=== PATIENT | female | born 1935 | race Caucasian/White ===

== ENCOUNTER 2021-03-19 07:34 | Emergency (ER) | payer MEDICARE, BC ==
--- NOTE | 2021-03-19 08:20 | EDM.PDOC ---
ED HPI GENERAL MEDICAL PROBLEM - General Chief Complaint: Cardiovascular Problem Stated Complaint: JUST DON'T FEEL LIKE HERSELF Time Seen by Provider: 03/19/21 08:05 Source of Information: Reports: Patient, Family, Old Records History Limitations: Reports: Other (incomplete records) - History of Present Illness INITIAL COMMENTS - FREE TEXT/NARRATIVE: 85 yo female presents with her daughter due to not feeling herself. She has not eaten today. Awoke early and felt like she does now. No GI, cardiac or respiratory complaints. Has noticed that her BP has been high more often than usual. The last 2 times she went to the clinic her BP was high initially, but came down later. Recently was in the clinic and had a normal TSH, B12 and folic acid levels. Recently had telmisartan stopped thinking this was not agreeing with her. Onset: Today (feeling worse than normal) Onset Date: 03/19/21 Duration: Hour(s):, Constant Location: Reports: Generalized Quality: Reports: Other (pain not reported) Severity: Mild Improves with: Reports: None Worsens with: Reports: Other (unknown) Context: Reports: Other (see HPI) Associated Symptoms: Reports: Malaise Treatments REPRODUCTION PRODUCTION MANAGER: Reports: Other (see below) (none) - Related Data Allergies Allergy/AdvReac Type Severity Reaction Status Date / Time No Known Allergies Allergy Verified 03/19/21 07:54 Home Meds: Home Meds Furosemide 40 mg PO DAILY 03/14/16 [History] Levothyroxine 25 mcg PO ACBREAKFAST 03/14/16 [History] Metoprolol Tartrate 75 mg PO BID 03/14/16 [History] Aspirin [Halfprin] 81 mg PO DAILY 03/19/21 [History] Past Medical History HEENT History: Reports: Impaired Vision Cardiovascular History: Reports: Hypertension Genitourinary History: Reports: None [employer]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: Musculoskeletal History: Reports: Gout, Other (See Below) Other Musculoskeletal History: gout years ago Endocrine/Metabolic History: Reports: Hypothyroidism - Infectious Disease History Infectious Disease History: Reports: Chicken Pox, Measles - Past Surgical History Head Surgeries/Procedures: Reports: None HEENT Surgical History: Reports: Adenoidectomy, Cataract Surgery, Tonsillectomy Cardiovascular Surgical History: Reports: None Female Surgical History: Reports: None Endocrine Surgical History: Reports: None Musculoskeletal Surgical History: Reports: None Dermatological Surgical History: Reports: None Social & Family History - Tobacco Use Tobacco Use Status *Q: Never Tobacco User Second Hand Smoke Exposure: No - Caffeine Use Caffeine Use: Reports: None - Recreational Drug Use Recreational Drug Use: No ED ROS GENERAL - Review of Systems Review Of Systems: See Below Constitutional: Reports: Malaise. Denies: Fever, Chills, Weakness HEENT: Reports: No Symptoms Respiratory: Reports: No Symptoms Cardiovascular: Reports: No Symptoms Endocrine: Reports: No Symptoms GI/Abdominal: Reports: No Symptoms : Reports: No Symptoms Musculoskeletal: Reports: No Symptoms Skin: Reports: No Symptoms Neurological: Reports: No Symptoms Psychiatric: Reports: No Symptoms ED EXAM, GENERAL - Physical Exam Exam: See Below Exam Limited By: No Limitations General Appearance: Alert, WD/WN, No Apparent Distress Eye Exam: Bilateral Eye: Normal Inspection, PERRL Ears: Normal External Exam, Normal Canal, Hearing Grossly Normal, Normal TMs Ear Exam: Bilateral Ear: Auricle Normal, Canal Normal, TM normal Nose: Normal Inspection, No Blood Throat/Mouth: Normal Inspection, Normal Lips, Normal Oropharynx, Normal Voice, No Airway Compromise Neck: Normal Inspection, Supple, Non-Tender Respiratory/Chest: No Respiratory Distress, Lungs Clear, Normal Breath Sounds, No Accessory Muscle Use Cardiovascular: Regular Rate, Rhythm, No Edema GI/Abdominal: Normal Bowel Sounds, Soft, Non-Tender, No Distention Back Exam: Normal Inspection. No: CVA Tenderness (R), CVA Tenderness (L) Extremities: Normal Inspection, Normal Range of Motion, Non-Tender, No Pedal Edema. No: Pedal Edema Neurological: Alert, Oriented, CN II-XII Intact, Normal Cognition, No Motor/Sensory Deficits Psychiatric: Normal Affect, Normal Mood Skin Exam: Warm, Dry, Intact, Normal Color, No Rash Course - Vital Signs Last Recorded V/S: Last Vital Signs Temp 36.1 C 03/19/21 07:58 Pulse 53 L 03/19/21 10:25 Resp 12 03/19/21 10:25 BP 158/57 H 03/19/21 10:25 Pulse Ox 100 03/19/21 10:25 - Orders/Labs/Meds Orders: Active Orders 24 hr Category Date Time Status NS + KCl 20mEq/L [Normal Saline with 20 mEq KCl] 1,000 Med 03/19/21 09:00 Active ml IV ASDIRECTED Medication Orders Potassium Chloride/Sodium Chloride (Normal Saline With 20 Meq Kcl) 1,000 mls @ 500 mls/hr IV ASDIRECTED DAAR Last Admin: 03/19/21 09:23 Dose: 500 mls/hr Documented by: JOHNNY Labs: Laboratory Tests 03/19/21 03/19/21 03/19/21 Range/Units 08:27 08:31 08:31 WBC 8.4 (4.5-11.0) K/uL RBC 4.53 (3.30-5.50) M/uL Hgb 14.2 (12.0-15.0) g/dL Hct 42.1 (36.0-48.0) % MCV 93 (80-98) fL MCH 31 (27-31) pg MCHC 34 (32-36) % Plt Count 258 (150-400) K/uL Sodium 144 (140-148) mmol/L Potassium 3.6 (3.6-5.2) mmol/L Chloride 106 (100-108) mmol/L Carbon Dioxide 30 (21-32) mmol/L Anion Gap 8.1 (5.0-14.0) mmol/L BUN 25 H (7-18) mg/dL Creatinine 1.1 H (0.6-1.0) mg/dL Est Cr Clr Drug Dosing 30.11 mL/min Estimated GFR (MDRD) 47 L (>60) Glucose 106 (74-106) mg/dL Calcium 8.9 (8.5-10.1) mg/dL Troponin I < 0.017 (0.000-0.056) ng/mL Urine Color Yellow (YELLOW) Urine Appearance Clear (CLEAR) Urine pH 5.5 (5.0-8.0) Ur Specific [place] 1.020 (1.008-1.030) Urine Protein Negative (NEGATIVE) mg/dL Urine Glucose (UA) Negative (NEGATIVE) mg/dL Urine Ketones Negative (NEGATIVE) mg/dL Urine Occult Blood Small H (NEGATIVE) Urine Nitrite Negative (NEGATIVE) Urine Bilirubin Negative (NEGATIVE) Urine Urobilinogen 0.2 (0.2-1.0) EU/dL Ur Leukocyte Esterase Trace H (NEGATIVE) Urine RBC Not seen (0-5) Urine WBC 0-5 (0-5) Ur Epithelial Cells Rare Amorphous Sediment Rare Urine Bacteria Rare Urine Mucus Moderate Urine Other See note Meds: Medications Generic Name Dose Route Start Last Admin Trade Name Freq PRN Reason Stop Dose Admin Potassium Chloride/Sodium Chloride 1,000 mls @ 500 mls/hr 03/19/21 09:00 03/19/21 09:23 Normal Saline With 20 Meq Kcl IV 500 mls/hr ASDIRECTED DARA Administration - Re-Assessments/Exams Free Text/Narrative Re-Assessment/Exam: 03/19/21 11:12 Feeling better after IV fluids Departure - Departure Time of Disposition: 11:20 Disposition: Home, Self-Care 01 Condition: Fair Clinical Impression: Labile blood pressure Referrals: Aarti Lozano MD [Primary Care Provider] - Forms: ED Department Discharge Additional Instructions: Follow up with your doctor early this week. Continue your current meds. Avoid salt or salty foods. Sepsis Event Note (ED) - Evaluation Sepsis Screening Result: No Definite Risk - Focused Exam Vital Signs: Vital Signs Temp Pulse Resp BP Pulse Ox 03/19/21 10:25 53 L 12 158/57 H 100 03/19/21 09:55 55 L 14 145/62 H 95 03/19/21 09:25 54 L 17 154/58 H 98 03/19/21 08:55 53 L 13 163/66 H 96 03/19/21 08:25 57 L 11 L 185/86 H 97 03/19/21 08:10 61 13 191/84 H 98 03/19/21 08:04 56 L 13 185/72 H 98 03/19/21 07:58 36.1 C 66 16 193/76 H 98 03/19/21 07:57 36.1 C 66 16 193/76 H 98 - My Orders Last 24 Hours: My Active Orders 03/19/21 09:00 NS + KCl 20mEq/L [Normal Saline with 20 mEq KCl] 1,000 ml IV ASDIRECTED - Assessment/Plan Last 24 Hours: My Active Orders 03/19/21 09:00 NS + KCl 20mEq/L [Normal Saline with 20 mEq KCl] 1,000 ml IV ASDIRECTED
[2021-03-19] MEDS ORDERED: NS + KCl 20mEq/L 1,000 ML IV SCH (09:00)
[2021-03-19 11:24] VITALS: BP 168/66; PULSE 54
== END 2021-03-19 11:41 | disposition home or self-care (01) ==
LOC: JP.ED 07:34
DX: I10 Essential (primary) hypertension (principal); E03.9 Hypothyroidism, unspecified; M10.9 Gout, unspecified; Z79.82 Long term (current) use of aspirin; Z79.899 Other long term (current) drug therapy
CPT/HCPCS: 36415; 80048; 81001; 84484; 85027; 99283; J3480

== ENCOUNTER 2022-08-24 08:01 | Emergency (ER) | payer MEDICARE, BC ==
[2022-08-24 10:35] VITALS: BP 181/79; PULSE 60
== END 2022-08-24 10:35 | disposition home or self-care (01) ==
LOC: JP.ED 08:01
DX: I12.9 Hypertensive chronic kidney disease with stage 1 through stage 4 chronic kidney disease, or unspecified chronic kidney disease (principal); N18.9 Chronic kidney disease, unspecified; N95.1 Menopausal and female climacteric states; R53.83 Other fatigue; E03.9 Hypothyroidism, unspecified; Z79.899 Other long term (current) drug therapy; Z88.8 Allergy status to other drugs, medicaments and biological substances; Z79.82 Long term (current) use of aspirin
CPT/HCPCS: 99283

== ENCOUNTER 2022-11-11 12:23 | Emergency (ER) | payer MEDICARE, BC ==
[2022-11-11 13:38] VITALS: BP 181/74; PULSE 67
== END 2022-11-11 13:43 | disposition home or self-care (01) ==
LOC: JP.ED 12:23
DX: K04.7 Periapical abscess without sinus (principal); M77.9 Enthesopathy, unspecified; I10 Essential (primary) hypertension; E03.9 Hypothyroidism, unspecified; Z88.8 Allergy status to other drugs, medicaments and biological substances; Z79.899 Other long term (current) drug therapy
CPT/HCPCS: 99282; 99283

== ENCOUNTER 2022-11-30 10:48 | Emergency (ER) | payer MEDICARE, BC ==
[2022-11-30] MEDS ORDERED: LORazepam 0.5 MG Tab PO ONE (11:33)
[2022-11-30 12:35] VITALS: BP 150/64; PULSE 54
== END 2022-11-30 12:52 | disposition home or self-care (01) ==
LOC: JP.ED 10:48
DX: I12.9 Hypertensive chronic kidney disease with stage 1 through stage 4 chronic kidney disease, or unspecified chronic kidney disease (principal); N18.9 Chronic kidney disease, unspecified; E03.9 Hypothyroidism, unspecified; Z88.8 Allergy status to other drugs, medicaments and biological substances; Z79.899 Other long term (current) drug therapy
CPT/HCPCS: 99282; A9270

== ENCOUNTER 2023-06-04 19:14 | Emergency (ER) | payer MEDICARE, BC ==
[2023-06-04 20:12] VITALS: BP 176/80; PULSE 62
== END 2023-06-04 21:21 | disposition home or self-care (01) ==
LOC: JP.ED 19:14
DX: F32.1 Major depressive disorder, single episode, moderate (principal); I12.9 Hypertensive chronic kidney disease with stage 1 through stage 4 chronic kidney disease, or unspecified chronic kidney disease; N18.9 Chronic kidney disease, unspecified; E03.9 Hypothyroidism, unspecified; Z88.8 Allergy status to other drugs, medicaments and biological substances
CPT/HCPCS: 99283

== ENCOUNTER 2024-05-03 17:34 | Inpatient (IN) | payer MEDICARE, BC ==
[2024-05-03] MEDS: Sodium Chloride 0.9% 1,000 ML IV SCH (22:10)
[2024-05-03 22:22] LABS: BASOPHILS ABSOLUTE AUTO 0.04 K/uL (0.00-0.10); BASOPHILS PERCENT AUTO 0.3 % (0.1-1.3); EOSINOPHILS ABSOLUTE AUTO 0.03 K/uL (0.00-0.40); EOSINOPHILS PERCENT AUTO 0.3 % (0.0-5.4); HEMATOCRIT 36.7 % (34.3-46.0); HEMOGLOBIN 12.7 g/dL (11.2-15.5); IMMATURE GRAN ABSOLUTE AUTO 0.06 K/uL (0.00-0.23); IMMATURE GRAN PERCENT AUTO 0.5 % (0.0-0.7); LYMPHOCYTES ABSOLUTE AUTO 1.16 K/uL (0.8-3.3); LYMPHOCYTES PERCENT AUTO 9.9 % (11.4-47.7); MEAN CORPUSCULAR HEMOGLOBIN 31.2 pg (31.6-35.5); MEAN CORPUSCULAR HGB CONC 34.6 g/dL (31.6-35.5); MEAN CORPUSCULAR VOLUME 90.2 fL (81.4-99.0); MONOCYTES ABSOLUTE AUTO 1.52 K/uL (0.20-0.90); MONOCYTES PERCENT AUTO 12.9 % (3.3-12.6); NEUTROPHILS ABSOLUTE AUTO 8.94 K/uL (1.0-7.6); NEUTROPHILS PERCENT AUTO 76.1 % (40.0-78.1); PLATELET COUNT,PLT 231 K/uL (130-375); RED BLOOD CELL COUNT 4.07 M/uL (3.77-5.24); WHITE BLOOD CELL COUNT,WBC 11.8 K/uL (3.2-11.0)
[2024-05-03 22:47] LABS: A/G RATIO 0.7 (1.2-2.2); ALANINE AMINOTRANSFERASE,ALT 25 U/L (12-78); ALKALINE PHOSPHATASE 90 U/L (46-116); AMYLASE 42 U/L (25-115); ASPARTATE AMNIOTRANSFERASE,AST 21 U/L (15-37); BLOOD UREA NITROGEN,BUN 18 mg/dL (7-18); CALCIUM 8.9 mg/dL (8.5-10.1); CARBON DIOXIDE,CO2 25 mmol/L (21-32); CREATININE 1.1 mg/dL (0.6-1.0); EST CRCL DRUG DOSING (CG) 27.96 mL/min; ESTIMATED GFR 48 mL/min (>60); GLUCOSE RANDOM 123 mg/dL (74-106); PROTEIN TOTAL,TP 7.1 g/dL (6.4-8.2)
[2024-05-03 22:50] LABS: POTASSIUM,K 3.8 mmol/L (3.6-5.2); SODIUM,NA 137 mmol/L (140-148)
[2024-05-03 23:26] LABS: APPEARANCE,URINE SLIGHTLY CLOUDY (CLEAR); BILIRUBIN,URINE NEGATIVE (NEGATIVE); COLOR,URINE YELLOW (YELLOW); GLUCOSE,URINE NEGATIVE (NEGATIVE); KETONES,URINE TRACE mg/dL (NEGATIVE); LEUKOCYTE ESTERASE,URINE SMALL (NEGATIVE); NITRITE,URINE NEGATIVE (NEGATIVE); OCCULT BLOOD,URINE SMALL (NEGATIVE); PH,URINE 6.5 (5.0-8.0); PROTEIN,URINE 30 mg/dL (NEGATIVE); UROBILINOGEN,URINE 0.2 EU/dL (0.2-1.0)
[2024-05-03 23:33] LABS: AMORPHOUS SEDIMENT,URINE NOT SEEN; BACTERIA,URINE FEW; EPITHELIAL CELLS,URINE NOT SEEN; MUCUS,URINE MANY
[2024-05-03] MEDS: cefTRIAXone 1 GM in Sodium Chloride 0.9% 50 ML IV SCH (23:55)
[2024-05-04 00:06] LABS: CORONAVIRUS COVID-19 NAA NEGATIVE (NEGATIVE); INFLUENZA A NAA NEGATIVE (NEGATIVE); INFLUENZA B NAA NEGATIVE (NEGATIVE); RESPIRATORY SYNCYTIAL VIR NAA NEGATIVE (NEGATIVE)
[2024-05-04] MEDS: Metoprolol Tartrate 50 MG Tab PO SCH (01:30)
[2024-05-04] MEDS: Sodium Chloride 0.9% 1,000 ML IV SCH (01:34)
[2024-05-04 05:00] LABS: BASOPHILS ABSOLUTE AUTO 0.03 K/uL (0.00-0.10); BASOPHILS PERCENT AUTO 0.3 % (0.1-1.3); EOSINOPHILS ABSOLUTE AUTO 0.07 K/uL (0.00-0.40); EOSINOPHILS PERCENT AUTO 0.6 % (0.0-5.4); HEMATOCRIT 32.6 % (34.3-46.0); HEMOGLOBIN 11.1 g/dL (11.2-15.5); IMMATURE GRAN ABSOLUTE AUTO 0.06 K/uL (0.00-0.23); IMMATURE GRAN PERCENT AUTO 0.5 % (0.0-0.7); LYMPHOCYTES ABSOLUTE AUTO 1.21 K/uL (0.8-3.3); LYMPHOCYTES PERCENT AUTO 10.1 % (11.4-47.7); MEAN CORPUSCULAR HEMOGLOBIN 30.6 pg (31.6-35.5); MEAN CORPUSCULAR VOLUME 89.8 fL (81.4-99.0); MONOCYTES ABSOLUTE AUTO 1.66 K/uL (0.20-0.90); MONOCYTES PERCENT AUTO 13.9 % (3.3-12.6); NEUTROPHILS ABSOLUTE AUTO 8.92 K/uL (1.0-7.6); NEUTROPHILS PERCENT AUTO 74.6 % (40.0-78.1); PLATELET COUNT,PLT 209 K/uL (130-375); RED BLOOD CELL COUNT 3.63 M/uL (3.77-5.24)
[2024-05-04 05:24] LABS: BLOOD UREA NITROGEN,BUN 17 mg/dL (7-18); CALCIUM 8.1 mg/dL (8.5-10.1); CARBON DIOXIDE,CO2 26 mmol/L (21-32); EST CRCL DRUG DOSING (CG) 30.76 mL/min; ESTIMATED GFR 54 mL/min (>60); GLUCOSE RANDOM 153 mg/dL (74-106)
[2024-05-04 05:36] LABS: POTASSIUM,K 3.6 mmol/L (3.6-5.2); SODIUM,NA 141 mmol/L (140-148)
[2024-05-04] MEDS ORDERED: Levothyroxine 25 MCG Tab PO SCH (07:30)
[2024-05-04] MEDS ORDERED: Sertraline 25 MG Tab PO SCH (09:00)
[2024-05-04] MEDS ORDERED: IRBESARTAN 300 MG PO SCH (09:00)
[2024-05-04] MEDS: Acetaminophen 325 MG Tab PO PRN (09:11)
[2024-05-04] MEDS: amLODIPine 5 MG Tab PO SCH (09:12)
[2024-05-04] MEDS: Rosuvastatin 10 MG Tab PO SCH (09:14)
[2024-05-04] MEDS: Multivitamins with Iron/Calcium/Folic Acid/Minerals Tab PO SCH (09:14)
[2024-05-04] MEDS: Calcium Carbonate 500 MG Tab.Chew PO SCH (09:14)
[2024-05-04] MEDS: Cholecalciferol (Vitamin D3) 25 MCG Tab PO SCH (09:14)
[2024-05-04] MEDS: Furosemide 40 MG Tab PO SCH (09:15)
[2024-05-04] MEDS: Sertraline 50 MG Tab PO SCH (09:15)
[2024-05-04] MEDS: Dorzolamide 2% Ophth Soln 10 ML Bottle EYERT SCH (09:15)
[2024-05-04] MEDS: LORazepam 2 MG/ML SDV IVPUSH PRN (14:13)
[2024-05-04] MEDS ORDERED: Latanoprost 0.005% Ophth Soln 2.5 ML Bottle EYEBOTH SCH (21:00)
[2024-05-04] MEDS: IRBESARTAN 300 MG PO SCH (21:18)
[2024-05-04] MEDS: Latanoprost 0.005% Ophth Soln 2.5 ML Bottle EYEBOTH SCH (21:19)
[2024-05-04] MEDS: Metoprolol Succinate 50 MG Tab.ER PO SCH (21:20)
[2024-05-05 05:34] LABS: BASOPHILS ABSOLUTE AUTO 0.03 K/uL (0.00-0.10); BASOPHILS PERCENT AUTO 0.2 % (0.1-1.3); EOSINOPHILS ABSOLUTE AUTO 0.04 K/uL (0.00-0.40); EOSINOPHILS PERCENT AUTO 0.3 % (0.0-5.4); HEMATOCRIT 33.3 % (34.3-46.0); HEMOGLOBIN 11.4 g/dL (11.2-15.5); IMMATURE GRAN ABSOLUTE AUTO 0.09 K/uL (0.00-0.23); IMMATURE GRAN PERCENT AUTO 0.7 % (0.0-0.7); LYMPHOCYTES ABSOLUTE AUTO 1.28 K/uL (0.8-3.3); LYMPHOCYTES PERCENT AUTO 9.4 % (11.4-47.7); MEAN CORPUSCULAR HEMOGLOBIN 30.5 pg (31.6-35.5); MEAN CORPUSCULAR HGB CONC 34.2 g/dL (31.6-35.5); MONOCYTES ABSOLUTE AUTO 1.73 K/uL (0.20-0.90); MONOCYTES PERCENT AUTO 12.8 % (3.3-12.6); NEUTROPHILS ABSOLUTE AUTO 10.39 K/uL (1.0-7.6); NEUTROPHILS PERCENT AUTO 76.6 % (40.0-78.1); PLATELET COUNT,PLT 224 K/uL (130-375); RED BLOOD CELL COUNT 3.74 M/uL (3.77-5.24); WHITE BLOOD CELL COUNT,WBC 13.6 K/uL (3.2-11.0)
[2024-05-05 05:51] LABS: CALCIUM 7.8 mg/dL (8.5-10.1); CREATININE 1.1 mg/dL (0.6-1.0); EST CRCL DRUG DOSING (CG) 27.96 mL/min; POTASSIUM,K 3.3 mmol/L (3.6-5.2)
[2024-05-05 05:54] LABS: ANION GAP 15.3 mmol/L (5.0-14.0)
[2024-05-05] MEDS: Levothyroxine 25 MCG Tab PO SCH (08:00)
[2024-05-05] MEDS: Potassium Chloride 20 MEQ Tab.ER PO ONE ×2 (08:43→16:51)
[2024-05-05] MEDS: Benzocaine/Cetylpyridinium/Menthol Lozenge MUCMEM PRN (10:54)
[2024-05-05] MEDS: methylPREDNISolone Sodium Succinate 40 MG/1 ML SDV IVPUSH SCH (10:54)
[2024-05-05] MEDS ORDERED: oxyCODONE 5 MG Tab PO PRN (13:03)
[2024-05-06 12:41] VITALS: BP 132/63; PULSE 63
[2024-05-07] MEDS ORDERED: Alendronate 70 MG Tab PO SCH (06:00)
== END 2024-05-06 17:10 | disposition home or self-care (01) | DRG 690 ==
LOC: JP.ED 17:34 → JP.MS 23:52
PROVIDERS: ADMIT Hospitalist; ATTEND Hospitalist
DX: R53.1 Weakness (principal); N39.0 Urinary tract infection, site not specified; I12.9 Hypertensive chronic kidney disease with stage 1 through stage 4 chronic kidney disease, or unspecified chronic kidney disease; N18.9 Chronic kidney disease, unspecified; M10.9 Gout, unspecified; N18.30 Chronic kidney disease, stage 3 unspecified; E03.9 Hypothyroidism, unspecified; R31.9 Hematuria, unspecified; H54.7 Unspecified visual loss; M19.90 Unspecified osteoarthritis, unspecified site; M47.816 Spondylosis without myelopathy or radiculopathy, lumbar region; M19.072 Primary osteoarthritis, left ankle and foot; M77.52 Other enthesopathy of left foot and ankle; Z88.8 Allergy status to other drugs, medicaments and biological substances; Z79.899 Other long term (current) drug therapy; Z98.49 Cataract extraction status, unspecified eye; Z90.89 Acquired absence of other organs; Z98.890 Other specified postprocedural states
CPT/HCPCS: 0241U; 36415; 72100; 72100-26; 73630-26-LT; 73630-LT; 73718-26-LT; 73718-LT; 80048; 80053; 81001; 82150; 83605; 83735; 84132; 84550; 85025; 87040; 87086; 96360; 96361; 97161-GP; 99222; 99232; 99238; 99284; 99285-25; A9270-GY; J0696; J2060; J2919; J3490; J7030; U0002

== ENCOUNTER 2024-09-26 15:43 | Emergency (ER) | payer MEDICARE, BC ==
[2024-09-26 16:31] LABS: BASOPHILS ABSOLUTE AUTO 0.03 K/uL (0.00-0.10); BASOPHILS PERCENT AUTO 0.2 % (0.1-1.3); EOSINOPHILS ABSOLUTE AUTO 0.06 K/uL (0.00-0.40); EOSINOPHILS PERCENT AUTO 0.5 % (0.0-5.4); HEMATOCRIT 37.8 % (34.3-46.0); HEMOGLOBIN 12.9 g/dL (11.2-15.5); IMMATURE GRAN ABSOLUTE AUTO 0.06 K/uL (0.00-0.23); IMMATURE GRAN PERCENT AUTO 0.5 % (0.0-0.7); LYMPHOCYTES ABSOLUTE AUTO 1.84 K/uL (0.8-3.3); LYMPHOCYTES PERCENT AUTO 14.1 % (11.4-47.7); MEAN CORPUSCULAR HEMOGLOBIN 31.1 pg (31.6-35.5); MEAN CORPUSCULAR HGB CONC 34.1 g/dL (31.6-35.5); MEAN CORPUSCULAR VOLUME 91.1 fL (81.4-99.0); MONOCYTES ABSOLUTE AUTO 1.33 K/uL (0.20-0.90); MONOCYTES PERCENT AUTO 10.2 % (3.3-12.6); NEUTROPHILS ABSOLUTE AUTO 9.74 K/uL (1.0-7.6); NEUTROPHILS PERCENT AUTO 74.5 % (40.0-78.1); PLATELET COUNT,PLT 244 K/uL (130-375); RED BLOOD CELL COUNT 4.15 M/uL (3.77-5.24); WHITE BLOOD CELL COUNT,WBC 13.1 K/uL (3.2-11.0)
[2024-09-26] MEDS: Aspirin 81 MG Tab.Chew PO ONE (16:47)
[2024-09-26 16:54] LABS: CALCIUM 8.7 mg/dL (8.5-10.1); CREATININE 1.4 mg/dL (0.6-1.0); EST CRCL DRUG DOSING (CG) 22.47 mL/min; POTASSIUM,K 3.4 mmol/L (3.6-5.2); TROPONIN I HIGH SENSITIVITY 9.5 pg/mL (<=60.3)
[2024-09-26 16:55] LABS: ANION GAP 10.4 mmol/L (5.0-14.0)
[2024-09-26] MEDS: Sodium Chloride 0.9% 10 ML Syringe FLUSH PRN (17:30)
[2024-09-26] MEDS: Sodium Chloride 0.9% 1,000 ML IV ONE (17:30)
[2024-09-26 18:46] VITALS: BP 152/52; PULSE 50
== END 2024-09-26 19:11 | disposition home or self-care (01) ==
LOC: JP.ED 15:43
DX: R07.89 Other chest pain (principal); I12.9 Hypertensive chronic kidney disease with stage 1 through stage 4 chronic kidney disease, or unspecified chronic kidney disease; N18.9 Chronic kidney disease, unspecified; E03.9 Hypothyroidism, unspecified; Z79.899 Other long term (current) drug therapy; Z88.8 Allergy status to other drugs, medicaments and biological substances
CPT/HCPCS: 36415; 71046; 80048; 84484; 85025; 93005; 96360; 99285; A9270; J7030

== ENCOUNTER 2025-02-23 17:16 | Emergency (ER) | payer MEDICARE, BC ==
[2025-02-23 17:19] VITALS: BP 185/64
[2025-02-23 17:26] VITALS: PULSE 62
[2025-02-23 17:39] LABS: BASOPHILS ABSOLUTE AUTO 0.05 K/uL (0.00-0.10); BASOPHILS PERCENT AUTO 0.6 % (0.1-1.3); EOSINOPHILS ABSOLUTE AUTO 0.11 K/uL (0.00-0.40); EOSINOPHILS PERCENT AUTO 1.3 % (0.0-5.4); HEMATOCRIT 36.7 % (34.3-46.0); HEMOGLOBIN 12.1 g/dL (11.2-15.5); IMMATURE GRAN ABSOLUTE AUTO 0.04 K/uL (0.00-0.23); IMMATURE GRAN PERCENT AUTO 0.5 % (0.0-0.7); LYMPHOCYTES ABSOLUTE AUTO 1.26 K/uL (0.8-3.3); LYMPHOCYTES PERCENT AUTO 14.7 % (11.4-47.7); MEAN CORPUSCULAR HEMOGLOBIN 30.6 pg (31.6-35.5); MEAN CORPUSCULAR VOLUME 92.9 fL (81.4-99.0); MONOCYTES ABSOLUTE AUTO 0.91 K/uL (0.20-0.90); MONOCYTES PERCENT AUTO 10.6 % (3.3-12.6); NEUTROPHILS PERCENT AUTO 72.3 % (40.0-78.1); PLATELET COUNT,PLT 203 K/uL (130-375); RED BLOOD CELL COUNT 3.95 M/uL (3.77-5.24); WHITE BLOOD CELL COUNT,WBC 8.6 K/uL (3.2-11.0)
[2025-02-23 18:00] LABS: A/G RATIO 1.2 (1.2-2.2); ALANINE AMINOTRANSFERASE,ALT 23 U/L (12-78); ALBUMIN 3.4 g/dL (3.4-5.0); ALKALINE PHOSPHATASE 94 U/L (46-116); ASPARTATE AMNIOTRANSFERASE,AST 18 U/L (15-37); BILIRUBIN TOTAL 0.4 mg/dL (0.2-1.0); BLOOD UREA NITROGEN,BUN 22 mg/dL (7-18); CALCIUM 8.6 mg/dL (8.5-10.1); CARBON DIOXIDE,CO2 26 mmol/L (21-32); CHLORIDE,CL 106 mmol/L (100-108); CREATININE 1.1 mg/dL (0.6-1.0); EST CRCL DRUG DOSING (CG) 27.96 mL/min; ESTIMATED GFR 48 mL/min (>60); GLUCOSE RANDOM 93 mg/dL (74-106); POTASSIUM,K 3.5 mmol/L (3.6-5.2); PROTEIN TOTAL,TP 6.3 g/dL (6.4-8.2); SODIUM,NA 142 mmol/L (140-148)
[2025-02-23 18:01] LABS: ANION GAP 13.5 mmol/L (5.0-14.0)
[2025-02-23 18:08] LABS: TROPONIN I HIGH SENSITIVITY 36.6 pg/mL (<=60.3)
[2025-02-23] MEDS: Alum Hydrox/Mag Hydrox/Simeth 15 ML, Lidocaine 2% 15 ML PO ONE (18:31)
== END 2025-02-23 18:51 | disposition home or self-care (01) ==
LOC: JP.ED 17:16
DX: K29.00 Acute gastritis without bleeding (principal); I12.9 Hypertensive chronic kidney disease with stage 1 through stage 4 chronic kidney disease, or unspecified chronic kidney disease; E03.9 Hypothyroidism, unspecified; N18.9 Chronic kidney disease, unspecified; Z88.8 Allergy status to other drugs, medicaments and biological substances; Z79.899 Other long term (current) drug therapy; Z79.811 Long term (current) use of aromatase inhibitors; Z79.890 Hormone replacement therapy; Z79.82 Long term (current) use of aspirin
CPT/HCPCS: 36415; 71045; 80053; 83880; 84484; 85025; 99285; A9270